=== PATIENT | female | born 1980 | race Caucasian/White ===

== ENCOUNTER 2021-02-21 13:35 | Emergency (ER) | payer SELFPAY ==
[~2021-02-21] VITALS: Ht 167.6 cm; Wt 64.7 kg
[2021-02-21 16:24] VITALS: BP 141/96
== END 2021-02-21 16:27 | disposition home or self-care (01) ==
LOC: ED 16:21
DX: F10.229 Alcohol dependence with intoxication, unspecified (principal); Y90.9 Presence of alcohol in blood, level not specified; R94.31 Abnormal electrocardiogram [ECG] [EKG]

== ENCOUNTER 2021-02-25 21:01 | Emergency (ER) | payer SELFPAY ==
[~2021-02-25] VITALS: Ht 167.6 cm; Wt 75.1 kg
--- NOTE | 2021-02-25 21:15 | NUR ---
BIBA FOR ABD PAIN. PT REPORTS BLOODY VOMIT AND BLOODY AND BLACK DIARRHEA "FOR WEEKS NOW". DRINKS 1 HANDLE A DAY, LAST DRINK 2 HRS AGO. PT VERY TEARFUL AND HOLDING UPPER MIDDLE ABD WHEN COMPLANING OF PAIN. STATES SHE KNOWS SHE HAS A PROBLEM BUT IS UNABLE TO STOP. ORIENTED X 4. PER EMS PT WAS ABLE TO AMBULATE WITH STEADY GAIT.
[2021-02-25] MEDS ORDERED: ONDANSETRON ODT 4 MG PO ONE (21:30)
[2021-02-25] MEDS ORDERED: MAALOX/HYOSCYAMINE/LIDOCAINE 45 ML BTL PO ONE (21:30)
[2021-02-25 21:35] LABS: BASOPHILS % (AUTO) 1 % (0-1); EOSINOPHILS % (AUTO) 2 % (1-7); LYMPHOCYTES % (AUTO) 34 % (22-44); MEAN CORPUSCULAR HEMOGLOBIN 29.2 pg (27.0-34.8); MEAN CORPUSCULAR HGB CONC 32.9 g/dL (32.4-35.8); MEAN PLATELET VOLUME 7.7 fL (7.4-10.4); MONOCYTES % (AUTO) 10 % (2-9); NEUTROPHILS % (AUTO) 53 % (42-75); PLATELET COUNT 158 x10^3/uL (130-400)
[2021-02-25] MEDS ORDERED: MAALOX/HYOSCYAMINE/LIDOCAINE 45 ML BTL ONE (21:42)
[2021-02-25] MEDS ORDERED: ONDANSETRON ODT 4 MG ONE (21:42)
[2021-02-25 21:45] LABS: ALANINE AMINOTRANSFERASE 121 U/L (12-78); ALBUMIN 3.5 g/dL (3.4-5.0); ANION GAP 9 mmol/L (5-15); CALCIUM 8.1 mg/dL (8.5-10.1); CHLORIDE 105 mmol/L (98-107); CREATININE 0.58 mg/dL (0.55-1.02)
[2021-02-25 21:50] LABS: ALKALINE PHOSPHATASE 58 U/L (45-117); BILIRUBIN,TOTAL 0.3 mg/dL (0.2-1.0); TOTAL PROTEIN 7.8 g/dL (6.4-8.2)
[2021-02-25 22:45] VITALS: BP 138/106
--- NOTE | 2021-02-25 22:45 | NUR ---
patient requesting to be dc'd and asking for a sandwhich, Dr. Espinoza aware, okay with giving patient karenwhich. Patient given discharge instructions and they have confirmed that they understand the instructions. Patient ambulatory with steady gait to dc desk, refusing taxi and wants to walk to where she is staying. NAD, all questions answered appropriately, denies additional needs at this time. No personal belongings left in room after discharge.
== END 2021-02-25 23:01 | disposition home or self-care (01) ==
LOC: ED 21:53
DX: K29.21 Alcoholic gastritis with bleeding (principal); R00.0 Tachycardia, unspecified
CPT/HCPCS: 36415; 80053; 80320; 83690; 84703; 85025; 99283; Q0162; G0480

== ENCOUNTER 2021-03-02 18:27 | Emergency (ER) | payer OTHER ==
[~2021-03-02] VITALS: Ht 167.6 cm; Wt 70.0 kg
[2021-03-02 18:30] VITALS: BP 139/109
--- NOTE | 2021-03-02 18:46 | NUR ---
biba for ETOH intoxication. pt has had 1 pint of vodka today. pt was seen here 1 week ago for same. resps even and unlabored, vss, tfifanien. call light in reach, warm blanket provided.
[2021-03-02] MEDS ORDERED: SODIUM CHLORIDE 0.9% 1,000ML IVBOLUS ONE (20:00)
[2021-03-02] MEDS ORDERED: SODIUM CHLORIDE FLUSH 10ML SYR IVF ONE (20:00)
[2021-03-02 20:18] LABS: BASOPHILS % (AUTO) 2 % (0-1); EOSINOPHILS % (AUTO) 2 % (1-7); LYMPHOCYTES % (AUTO) 26 % (22-44); MEAN CORPUSCULAR HEMOGLOBIN 30.1 pg (27.0-34.8); MEAN CORPUSCULAR HGB CONC 33.8 g/dL (32.4-35.8); MEAN PLATELET VOLUME 7.6 fL (7.4-10.4); MONOCYTES % (AUTO) 8 % (2-9); NEUTROPHILS % (AUTO) 63 % (42-75); PLATELET COUNT 133 x10^3/uL (130-400); RED BLOOD COUNT 4.55 x10^6/uL (3.82-5.3); RED CELL DISTRIBUTION WIDTH 16.8 % (9.6-15.2)
[2021-03-02 20:27] LABS: ALANINE AMINOTRANSFERASE 196 U/L (12-78); ANION GAP 13 mmol/L (5-15); BILIRUBIN, DIRECT 0.2 mg/dL (0.1-0.2); CALCIUM 7.4 mg/dL (8.5-10.1); CHLORIDE 97 mmol/L (98-107); CREATININE 0.54 mg/dL (0.55-1.02)
[2021-03-02 20:30] LABS: ALKALINE PHOSPHATASE 77 U/L (45-117); BILIRUBIN,INDIRECT 0.3 mg/dL (0.0-2.0); BILIRUBIN,TOTAL 0.5 mg/dL (0.2-1.0); TOTAL PROTEIN 8.4 g/dL (6.4-8.2)
[2021-03-02] MEDS ORDERED: CHLORDIAZEPOXIDE 25 MG CAPSULE PO ONE (20:30)
[2021-03-02 20:51] LABS: INTERNATIONAL NORMALIZED RATIO 1.01 (0.93-1.1); PROTHROMBIN TIME 10.8 Seconds (9.6-11.5)
[2021-03-02] MEDS ORDERED: LORazepam 2 MG/ML, 1ML IVPush ONE (21:00)
[2021-03-02] MEDS ORDERED: LORazepam 2 MG/ML, 1ML ONE (23:21)
--- NOTE | 2021-03-03 00:17 | NUR ---
pt educated on dc instructions, verbalized understanding. ambulatory to dc desk with steday gait.
== END 2021-03-03 00:20 | disposition home or self-care (01) ==
LOC: ED 20:48
DX: F10.220 Alcohol dependence with intoxication, uncomplicated (principal); R11.10 Vomiting, unspecified; R00.0 Tachycardia, unspecified; Y90.0 Blood alcohol level of less than 20 mg/100 ml
CPT/HCPCS: 36415; 80048; 80076; 80320; 82040; 85025; 85610; 85730; 96361; 96374; 99283; J2060; J7030; G0480